=== PATIENT | male | born 1965 | race Caucasian/White ===

== ENCOUNTER → 2019-11-06 | Outpatient (CLI) | payer SELFPAY ==
[~2019-11-06] MED LIST: HYDCHL25 PO; Lovastatin20 MG PO
== END | disposition home or self-care (01) ==
LOC: LAB 18:36 → LAB SHORT 18:36
DX: T81.41XA Infection following a procedure, superficial incisional surgical site, initial encounter (principal)
CPT/HCPCS: 87070; 87205